=== PATIENT | female | born 1990 | race Caucasian/White ===

== ENCOUNTER 2020-12-07 21:34 | Emergency (ER) | payer OTHER, MEDICAID ==
[~2020-12-07] VITALS: Ht 162.6 cm; Wt 55.8 kg
[~2020-12-07 21:34] MED LIST: ACETAMINOPHEN-1 EAC1 PO; AMOXICILLIN 50500 M1 PO; BACTRIM DS TAB1 EACH PO; DOXYCYCLINE 10100 MG PO; FLAGYL500 MG PO; HYDROCODONE-AP1 EAC6 PO; HYDROXYZINE HCL25 M1 PO; IBUPROFEN 600600 M1 PO; IBUPROFEN 800800 M1 PO; LEVAQUIN 500 M500 M2 PO; LIDOCAINE VISC100 M1 SWISH&SPIT; MOBIC7.5 MG PO; NAPROSYN500 MG PO; NATALCARE PLUS1 EACH PO; NORCO 5-325 TA1 EACH PO; ONDANSETRON HCL4 M2 PO; PENICILLIN V P500 MG PO; PYRIDIUM200 MG PO; REMERON30 MG PO; XANAX 0.25 MG0.25 MG PO; ZOFRAN ODT4 MG PO; ZOLOFT100 MG PO; ZPAK PO
[2020-12-07] MEDS ORDERED: TRAMADOL 50 MG50 MG PO (22:50)
[2020-12-07] MEDS ORDERED: KEFLEX250 MG PO (22:50)
[2020-12-07 23:05] VITALS: BP 132/54
== END 2020-12-07 23:07 | disposition home or self-care (01) ==
LOC: M.ERS 21:34
DX: L72.3 Sebaceous cyst (principal); Z90.710 Acquired absence of both cervix and uterus; Z88.8 Allergy status to other drugs, medicaments and biological substances

== ENCOUNTER 2021-02-12 20:04 | Emergency (ER) | payer OTHER, MEDICAID ==
[~2021-02-12] VITALS: Ht 157.5 cm; Wt 54.4 kg
[~2021-02-12 20:04] MED LIST changes: +KEFLEX250 MG PO; +TRAMADOL 50 MG50 MG PO
[2021-02-12 21:42] LABS: HEMATOCRIT 35.3 % (37.0-47.0); HEMOGLOBIN 12.3 gm/dL (12.0-15.0); MCH 34.8 pg (26.0-34.0); MCHC 34.8 g/dL (28.0-37.0); MCV 99.9 fL (80.0-100.0); MPV 8.7 fl. (7.2-11.1); RBC 3.54 mil/uL (4.20-5.00); RDW-CV 12.9 % (10.5-14.5); WBC 6.9 thou/uL (4.0-11.0)
[2021-02-12 21:49] LABS: CALCIUM 8.5 mg/dL (8.5-10.1); CREATININE 0.9 mg/dL (0.6-1.3); POTASSIUM 3.8 mmol/L (3.5-5.1)
[2021-02-12 21:53] LABS: ALBUMIN 3.7 g/dL (3.4-5.0); TOTAL BILIRUBIN 0.3 mg/dL (<0.1-1.0); TOTAL PROTEIN 6.6 g/dL (6.4-8.2)
[2021-02-12 23:33] LABS: AMP/METHAMP Negative (Negative); BARBITURATES Negative (Negative); BENZODIAZEPINES POSITIVE (Negative); COCAINE Negative (Negative); METHADONE Negative (Negative); OPIATES Negative (Negative); PCP Negative (Negative); THC POSITIVE (Negative)
[2021-02-12 23:39] LABS: URINE BILIRUBIN NEGATIVE (Negative); URINE BLOOD NEGATIVE (Negative); URINE CLARITY CLEAR; URINE COLOR YELLOW; URINE GLUCOSE-RANDOM NEGATIVE (Negative); URINE KETONES NEGATIVE (Negative); URINE LEUKOCYTES-REFLEX NEGATIVE (Negative); URINE NITRITE-REFLEX NEGATIVE (Negative); URINE PROTEIN NEGATIVE (Negative); URINE UROBILINOGEN 0.2 E.U./dl (0.2-1.0)
[2021-02-13] MEDS ORDERED: AMOXICILLIN875 MG PO (00:40)
[2021-02-13] MEDS ORDERED: TORADOL 10 MG T10 MG PO (00:40)
[2021-02-13 00:59] VITALS: BP 109/70
== END 2021-02-13 00:59 | disposition home or self-care (01) ==
LOC: M.ERS 20:04
PROVIDERS: Personal Emergency Response Attendant
DX: J32.9 Chronic sinusitis, unspecified (principal); Z88.8 Allergy status to other drugs, medicaments and biological substances; Z90.710 Acquired absence of both cervix and uterus

== ENCOUNTER 2021-05-06 14:13 | Emergency (ER) | payer OTHER, MEDICAID ==
[~2021-05-06] VITALS: Ht 162.6 cm; Wt 53.1 kg
[~2021-05-06 14:13] MED LIST changes: +AMOXICILLIN875 MG PO; +TORADOL 10 MG T10 MG PO
[2021-05-06 14:32] LABS: URINE BILIRUBIN NEGATIVE (Negative); URINE BLOOD NEGATIVE (Negative); URINE CLARITY CLEAR; URINE COLOR YELLOW; URINE GLUCOSE-RANDOM NEGATIVE (Negative); URINE KETONES NEGATIVE (Negative); URINE LEUKOCYTES-REFLEX TRACE (Negative); URINE NITRITE-REFLEX NEGATIVE (Negative); URINE PROTEIN NEGATIVE (Negative); URINE UROBILINOGEN 0.2 E.U./dl (0.2-1.0)
[2021-05-06 14:40] LABS: ABSOLUTE EOSINOPHILS 0.3 thou/uL (0.0-0.7); ABSOLUTE LYMPHOCYTES 1.7 thou/uL (0.8-5.3); ABSOLUTE MONOCYTES 0.3 thou/uL (0.0-1.2); ABSOLUTE NEUTROPHILS 3.7 thou/uL (1.6-8.1); BASOPHILS 0.1 %; EOSINOPHILS 4.5 %; HEMATOCRIT 36.5 % (37.0-47.0); HEMOGLOBIN 12.3 gm/dL (12.0-15.0); LYMPHOCYTES 28.8 %; MCHC 33.8 g/dL (28.0-37.0); MCV 100.7 fL (80.0-100.0); MONOCYTES 4.3 %; NUCLEATED RBCS 0 /100WBC; PLATELET COUNT* 204 thou/uL (150-400); POLYS 62.3 %; RBC 3.63 mil/uL (4.20-5.00)
[2021-05-06 14:48] LABS: BACTERIA-REFLEX 1-9 Few /HPF (None Seen); CASTS None Seen /LPF (None Seen); CRYSTALS None Seen /LPF (None Seen); SQUAMOUS 0-3 Few /LPF (0-3); URINE RBC 0-2 Rare /HPF (0-2); URINE WBC-REFLEX 0-5 Rare /HPF (0-5)
[2021-05-06 14:49] LABS: CALCIUM 8.5 mg/dL (8.5-10.1); CREATININE 0.8 mg/dL (0.6-1.3); POTASSIUM 3.4 mmol/L (3.5-5.1)
[2021-05-06 14:53] LABS: ALBUMIN 3.9 g/dL (3.4-5.0); TOTAL BILIRUBIN 0.2 mg/dL (<0.1-1.0); TOTAL PROTEIN 6.6 g/dL (6.4-8.2)
[2021-05-06] MEDS ORDERED: HYDROCODON-ACE1 EAC7 PO (16:12)
[2021-05-06] MEDS ORDERED: ZOFRAN ODT4 MG DISSOLVE (16:12)
[2021-05-06] MEDS ORDERED: CEPHALEXIN500 MG PO (16:12)
[2021-05-06 16:28] VITALS: BP 101/53
--- NOTE | 2021-05-07 11:46 | EKG ---
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
== END 2021-05-06 16:35 | disposition home or self-care (01) ==
LOC: M.ERS 14:13
PROVIDERS: Emergency Medicine Emergency Medical Services
DX: R10.816 Epigastric abdominal tenderness (principal); R10.811 Right upper quadrant abdominal tenderness; R10.813 Right lower quadrant abdominal tenderness; Z90.710 Acquired absence of both cervix and uterus; Z88.8 Allergy status to other drugs, medicaments and biological substances

== ENCOUNTER 2021-07-13 12:29 | Emergency (ER) | payer OTHER, MEDICAID ==
[~2021-07-13] VITALS: Ht 160 cm; Wt 55.3 kg
[~2021-07-13 12:29] MED LIST changes: +CEPHALEXIN500 MG PO; +HYDROCODON-ACE1 EAC7 PO; +ZOFRAN ODT4 MG DISSOLVE
[2021-07-13 12:43] LABS: URINE BILIRUBIN NEGATIVE (Negative); URINE BLOOD NEGATIVE (Negative); URINE CLARITY CLEAR; URINE COLOR YELLOW; URINE GLUCOSE-RANDOM NEGATIVE (Negative); URINE KETONES NEGATIVE (Negative); URINE LEUKOCYTES NEGATIVE (Negative); URINE NITRITE NEGATIVE (Negative); URINE PROTEIN NEGATIVE (Negative); URINE SPECIFIC GRAVITY <= 1.005 (1.005-1.030); URINE UROBILINOGEN 0.2 E.U./dl (0.2-1.0)
[2021-07-13 12:57] LABS: ABSOLUTE LYMPHOCYTES 1.6 thou/uL (0.8-5.3); ABSOLUTE MONOCYTES 0.4 thou/uL (0.0-1.2); HEMOGLOBIN 12.6 gm/dL (12.0-15.0); MCHC 33.7 g/dL (28.0-37.0); MONOCYTES 5.8 %; NUCLEATED RBCS 0 /100WBC; RBC 3.72 mil/uL (4.20-5.00); WBC 6.8 thou/uL (4.0-11.0)
[2021-07-13 12:58] LABS: ABSOLUTE BASOPHILS 0.1 thou/uL (0.0-0.2); ABSOLUTE EOSINOPHILS 0.2 thou/uL (0.0-0.7); ABSOLUTE NEUTROPHILS 4.6 thou/uL (1.6-8.1); BASOPHILS 0.8 %; EOSINOPHILS 2.4 %; HEMATOCRIT 37.5 % (37.0-47.0); MCV 100.9 fL (80.0-100.0); MPV 8.5 fl. (7.2-11.1); PLATELET COUNT* 212 thou/uL (150-400); RDW-CV 12.6 % (10.5-14.5)
[2021-07-13 13:03] LABS: CALCIUM 8.6 mg/dL (8.5-10.1); CREATININE 0.8 mg/dL (0.6-1.3); POTASSIUM 3.7 mmol/L (3.5-5.1)
[2021-07-13 13:07] LABS: ALBUMIN 3.7 g/dL (3.4-5.0); TOTAL BILIRUBIN 0.3 mg/dL (<0.1-1.0)
[2021-07-13] MEDS ORDERED: HYDROCODON-ACE1 EAC7 PO (15:38)
[2021-07-13] MEDS ORDERED: ZOFRAN ODT4 MG PO (15:44)
[2021-07-13 15:48] VITALS: BP 100/50
--- NOTE | 2021-07-14 10:16 | EKG ---
[place] [address] ELECTROCARDIOGRAM REPORT Name: SUSANNE LEWIS Room: [facility]#: [id number] Admission: 07/13/21 Attend Phys: Discharge: 07/13/21 Date of : 86 Date of Service: 07/13/21 1250 Report #: [id number] THIS REPORT FOR: //name// [facility] ED Test Date: 2021-07-13 Test Time: 12:50:48 Pat Name: SUSANNE LEWIS Department: Room: Gender: Manager Mission: : 1990 Requested By: Jase Morel Order Number: [id number] MD: Justus Linda Measurements Intervals [place] Rate: 69 P: 72 ME: 133 QRS: 68 QRSD: 92 T: 34 QT: 389 QTc: 417 Interpretive Statements Sinus rhythm Compared to ECG 05/06/2021 14:33:03 No significant changes Electronically Signed On 07-14-2021 10:16:10 [employer]IL [employer] by Justus Linda [email or web address] <ELECTRONICALLY SIGNED> By: Justus Linda MD, [facility] 07/14/21 1016 1250 1250 Justus Linda MD, FAC /EPI
== END 2021-07-13 15:49 | disposition home or self-care (01) ==
LOC: M.ERS 12:29
PROVIDERS: Physician Assistant
DX: N83.202 Unspecified ovarian cyst, left side (principal); F41.9 Anxiety disorder, unspecified; F32.9 Major depressive disorder, single episode, unspecified; F17.210 Nicotine dependence, cigarettes, uncomplicated; Z90.710 Acquired absence of both cervix and uterus; Z88.8 Allergy status to other drugs, medicaments and biological substances